=== PATIENT | male | born 1965 | race American Indian/Alaskan Native ===

== ENCOUNTER → 2024-10-22 | Outpatient (CLI) | payer OTHER, SELFPAY ==
--- NOTE | 2024-10-22 10:58 | XR_ITS ---
Examination: Lumbar spine, 5 views Technique: Lumbar spine AP, lateral, coned lateral lower lumbar spine, bilateral obliques 5 views Exam date and time: October 22, 2024 11:10 AM Indications: Patient fell today with injury to lower back, lower back pain. Findings: Adequate alignment lumbar vertebral bodies No lumbar fracture Mild to moderate diffuse lumbar disc narrowing Impression: No lumbar fracture
--- NOTE | 2024-10-22 10:58 | XR_ITS ---
Examination: Bilateral hips, AP pelvis, 5 views Technique: AP, lateral views both hips, AP pelvis, 5 views Exam date and time: October 22, 2024 11:10 AM Indications: Patient fell today with injury to both hips, bilateral knee pain. Findings: No acute right or left hip fracture No hip dislocations Bones of the pelvis intact Impression: No acute hip or pelvic fracture
== END | disposition home or self-care (01) ==
PROVIDERS: PCP Physician Assistant; Referring Provider Physician Assistant; Visit Provider Physician Assistant
DX: S39.92XA Unspecified injury of lower back, initial encounter (principal); S79.912A Unspecified injury of left hip, initial encounter; S79.911A Unspecified injury of right hip, initial encounter; W19.XXXA Unspecified fall, initial encounter
CPT/HCPCS: 72110; 73523